=== PATIENT | female | born 1975 | race American Indian/Alaskan Native ===

== ENCOUNTER 2019-05-08 06:09 | Day surgery (SDC) | payer BC ==
--- NOTE | 2019-05-08 02:36 | Short Stay Summary ---
Short Stay Documentation Date of service: 05/08/19 Narrative H&P: Ms Wolfe is a 44 year old who presents today for an endometrial ablation for persistent menorrhagia that has led to iron deficiency anemia causing the iron transfusions over the past 6-8 months. Prior to this time the patient has not had any medical concerns. - History Principal diagnosis: Menorrhagia H&P: obtained from office Past Medical History: No medical history Past Surgical History: No surgical history Social history: single - Allergies and Medications Current Medications: Allergies No Known Allergies Allergy (Unverified 05/06/19 15:42) Home Medications Medication Instructions Recorded Confirmed Last Taken Type No Known Home Medications [No 05/06/19 05/06/19 Unknown History Reported Home Medications] - Physical exam General appearance: no acute distress Lungs: Clear to auscultation, Normal air movement Breasts: deferred Heart: Regular rate, Normal S1, Normal S2 Gastrointestinal: normal, normoactive bowel sounds Female Genitourinary: normal Rectal Exam: deferred Extremities: No edema - Brief post op/procedure progress note Date of procedure: 05/08/19 Pre-op diagnosis: Menorrhagia, AUB Post-op diagnosis: same Procedure: NOvasure Endometrial ablation Anesthesia: GETA Findings: thickened endometrium with no obvious lesions Surgeon: RENYALDO WILLETT Estimated blood loss: minimal Pathology: list (endometrial curretings) Specimen disposition: to lab Condition: stable - Hospital course Hospital course: unremarkable - Disposition Condition at discharge: Good Disposition: DC-01 TO HOME OR SELFCARE Short Stay Discharge Plan Activity: advance as tolerated Weight Bearing Status: Weight Bear as Tolerated Diet: regular Follow up with: REYNALDO WILLETT MD [Staff Physician] - 14 Days Prescriptions: Ibuprofen [Motrin 800 MG tab] 800 mg PO Q8HR PRN #40 tablet PRN Reason: Pain, Moderate (4-6) HYDROcodone/APAP 5-325 [[place]gilvie 5/325] 2 each PO Q6HR PRN #24 tablet PRN Reason: Pain
[~2019-05-08 06:09] MED LIST: ceFAZolin/Water 2 GM/20 ML 2 GM/20 ML SYRINGE IV NR
[2019-05-08] MEDS ORDERED: LACTATED RINGERS 1,000 ML ONE (07:06)
[2019-05-08] MEDS ORDERED: BACTERIOSTATIC SODIUM CHLORIDE 0.9% 30 ML VIAL INFILTRATI ONE (07:06)
[2019-05-08] MEDS ORDERED: fentaNYL 100 MCG/2 ML INJ IV PRN (07:07)
[2019-05-08] MEDS ORDERED: ONDANSETRON 4 MG/2 ML INJ IV PRN (07:07)
--- NOTE | 2019-05-08 07:09 | Anesthesia Day of Surgery ---
Anesthesia Day of Surgery - Day of Surgery Patient Examined: Yes Patient H&P Reviewed: Yes Patient is NPO: Yes
--- NOTE | 2019-05-08 07:12 | Anesthesia Consultation ---
Anesthesia Consult and Med Hx Date of service: 05/08/19 - Airway Anesthetic Teeth Evaluation: Chipped ROM Head & Neck: Adequate Mental/Hyoid Distance: Adequate Mallampati Class: Class III Intubation Access Assessment: Probably Good - Pre-Operative Health Status ASA Pre-Surgery Classification: ASA2 Proposed Anesthetic Plan: General - Central Nervous System Hx Psychiatric Problems: No - Hematic Hx Anemia: Yes (Resolved after blood transfusion) - Other Systems Hx Cancer: No
[2019-05-08] MEDS ORDERED: KETOROLAC 30 MG/1 ML INJ ONE (07:30)
[2019-05-08] MEDS ORDERED: SUCCINYLCHOLINE CHLORIDE 200 MG/10 ML INJ MDV ONE (07:36)
[2019-05-08] MEDS ORDERED: PROPOFOL 200 MG/20 ML VIAL IV ONE (07:36)
[2019-05-08] MEDS ORDERED: ONDANSETRON 4 MG/2 ML INJ ONE (07:36)
[2019-05-08] MEDS ORDERED: GLYCOPYRROLATE 0.4 MG/2 ML INJ ONE (07:36)
[2019-05-08] MEDS ORDERED: fentaNYL 100 MCG/2 ML INJ ONE (07:36)
[2019-05-08] MEDS ORDERED: LIDOCAINE MPF (2%) 20 MG/1 ML VIAL 5 ML ONE (07:36)
[2019-05-08] MEDS ORDERED: dexAMETHasone 20 MG/5 ML VIAL ONE (07:36)
[2019-05-08 07:42] LABS: Hematocrit 36.3 % (30.3-42.9); Hemoglobin 12.3 gm/dl (10.1-14.3); Mean Corpuscular HGB Conc 34 % (30-34); Mean Corpuscular Volume 88 fl (79-97); Platelet Count 258 K/mm3 (140-440); Red Blood Count 4.11 M/mm3 (3.65-5.03); Red Cell Distribution Width 14.1 % (13.2-15.2)
[2019-05-08] MEDS ORDERED: SILVER NITRATE APPLICATOR 1 EA TP ONE (07:42)
[2019-05-08] MEDS ORDERED: LACTATED RINGERS 1,000 ML IV SCH (08:00)
[2019-05-08] MEDS ORDERED: MIDAZOLAM 2 MG/2 ML INJ IV NR (08:00)
[2019-05-08] MEDS ORDERED: SODIUM CHLORIDE 0.9% IRRIG SOLN 3000 ML IR ONE (08:21)
--- NOTE | 2019-05-08 08:48 | Operative Report ---
Operative Report Operative Report: Preoperative diagnosis: Perimenopausal menorrhagia Postoperative diagnosis: Same Procedure: NovaSure endometrial ablation Surgeon: Dr. Alana Montero Anesthesia: MAC Complications: None Specimens: Endometrial curettings EBL: Minimal Urine output: 150 mL clear Procedure: The patient was taken to the OR with IV running and in place. She was given adequate anesthesia without difficulty. She was placed in the dorsal lithotomy position. She was then prepped and draped in the normal sterile fashion. Attention was turned to the patient's vagina. Bladder was drained of approximately 150 mL of clear yellow urine. A speculum was placed in the patient's vagina. The cervix was visualized and grasped with a single-tooth tenaculum. The cervix was gently dilated up to approximately a 8 mm. Following this the hysteroscope was introduced into the uterine cavity. There was no obvious pathology. A D&C was performed which retrieved a small amount of tissue. NovaSure ablation was then performed according to slope runner's instructions to a length of 6.5 and width of 4.3. The cycle lasted 67 seconds. Once the ablation device was removed the hysteroscope was reintroduced. There appeared to be a good result with maximum amount of burn. At this point all instruments removed from the patient's vagina. She was then awakened and taken to recovery in stable condition. The sponge and instrument counts were correct 2.
[2019-05-08] MEDS ORDERED: HYDROmorphone 1 MG/1 ML INJ ONE (08:54)
[2019-05-08 10:33] VITALS: BP 124/79
--- NOTE | 2019-05-08 14:14 | Post Anesthesia Evaluation ---
- Post Anesthesia Evaluation Patient Participated: Yes Airway Patent: Yes Stable Respiratory Function: Yes Nausea/Vomiting: No Temp > 96.8F: Yes Pain Manageable: Yes Adequeate Hydration: Yes Anesthesia Complications: No Block Receding Appropriately: Not Applicable Patient on Ventilator: No
== END 2019-05-08 06:10 | disposition home or self-care (01) ==
LOC: OR 06:09
PROVIDERS: ATTEND Obstetrics & Gynecology
DX: N92.4 Excessive bleeding in the premenopausal period (principal); N85.8 Other specified noninflammatory disorders of uterus; Z79.899 Other long term (current) drug therapy; Z98.890 Other specified postprocedural states; Z86.2 Personal history of diseases of the blood and blood-forming organs and certain disorders involving the immune mechanism
CPT/HCPCS: 36415; 58563; 81025; 85027; 88305; A4217; J0330; J0690; J1100; J1170; J1885; J2250; J2405; J2704; J3010; J7120